=== PATIENT | female | born 1950 | race Caucasian/White ===

== ENCOUNTER 2017-08-30 08:45 | Emergency (ER) | payer BC, MEDICARE ==
[~2017-08-30] VITALS: Ht 149.9 cm; Wt 44.9 kg
[2017-08-30] MEDS ORDERED: FLUORESCEIN SODIUM OPHTH 1 EA STRIP ONE (08:57)
[2017-08-30] MEDS ORDERED: TETRACAINE HCL/PF 0.5% UD 2 ML BOTTLE ONE (08:57)
[2017-08-30] MEDS ORDERED: TETRACAINE HCL 0.5% OPHTALMIC 15 ML BOTTLE OP ONE (09:00)
[2017-08-30] MEDS ORDERED: FLUORESCEIN SODIUM OPHTH 1 EA STRIP OP ONE (09:00)
[2017-08-30 09:19] VITALS: BP 122/71
== END 2017-08-30 09:24 | disposition home or self-care (01) ==
LOC: ER 08:49
DX: S05.92XA Unspecified injury of left eye and orbit, initial encounter (principal); E78.5 Hyperlipidemia, unspecified; I10 Essential (primary) hypertension; X58.XXXA Exposure to other specified factors, initial encounter; Y93.89 Activity, other specified; Y92.89 Other specified places as the place of occurrence of the external cause; Y99.9 Unspecified external cause status
CPT/HCPCS: 99283; A4606; Z7610